=== PATIENT | female | born 1995 | race Caucasian/White ===

== ENCOUNTER 2016-12-18 19:26 | Emergency (ER) | payer OTHER ==
[2016-12-18 19:37] VITALS: O2SAT 96
[2016-12-18] MEDS ORDERED: PROVENTIL 2.5 MG/3 ML NEB IH ONE ×2 (20:06→20:16)
[2016-12-18] MEDS ORDERED: Rocephin 1000 MG INJ IM ONE (20:07)
[2016-12-18] MEDS ORDERED: Zithromax 250 MG TABLET PO ONE (20:07)
[2016-12-18] MEDS ORDERED: Robitussin-Dm Syrup PO ONE (20:07)
[2016-12-18] MEDS ORDERED: Rocephin 1000 MG INJ ONE (20:12)
[2016-12-18] MEDS ORDERED: Zithromax 250 MG TABLET ONE (20:12)
--- NOTE | 2016-12-18 20:13 | ERPHSYRPT ---
- History of Present Illness Time Seen by Provider: 12/18/16 20:02 Source: patient Exam Limitations: no limitations Patient Subjective Stated Complaint: PT STATES SHE HAS HAD A COUGH AND UPPER RESPIRATORY SYMTPTOMS STATSE HAS ASTHMA HAS BEEN SOB BUT HER NEBS HAVE BEEN HELPING UP UNTIL TODAY STATES THAT SHE DOSEN'T HAVE INSURANCE RIGHT NOW SOS HE DOSEN'T HAVE AN INHALER. PT LAST TOOK ALBUTEROL NEB [place] AT 1845 Triage Nursing Assessment: PT ALERT WARM AND DRY RESP EASY NON LABORED NO WHEEZES NOTED ON AUSCULTATION HOARSE VOICE NOTED. Physician History: FOR THE PAST 2 DAYS PT HAS HAD A SORE THROAT, RUNNY NOSE, EARACHES, COUGH, WHEEZING AND MID CHEST PAIN WITH COUGHING ONLY; TODAY HOARSENESS. Allergies/Adverse Reactions: codeine Allergy (Verified 12/18/16 19:33) Hx Tetanus, Diphtheria Vaccination/Date Given: No Hx Influenza Vaccination/Date Given: No Hx Pneumococcal Vaccination/Date Given: No Immunizations Up to Date: Yes - Review of Systems Constitutional: No Fever Ears, Nose, & Throat: Ear Pain, Nose Discharge, Throat Pain, Hoarse Respiratory: Cough, Wheezing Cardiac: Chest Pain Abdominal/Gastrointestinal: No Abdominal Pain, No Nausea, No Vomiting All Other Systems: Reviewed and Negative - Past Medical History Pertinent Past Medical History: Yes Other Medical History: ASTHMA - Past Surgical History Past Surgical History: Yes Other Surgical History: TONSILS,TUBES IN EARS,SPINAL TAP - Social History Smoking Status: Never smoker Exposure to second hand smoke: No Drug Use: none Patient Lives Alone: No - Female History Hx Last Menstrual Period: 3 WEEKS AGO - Nursing Vital Signs Nursing Vital Signs: Initial Vital Signs Temperature 99.0 F Temperature Source Oral Pulse Rate 94 Respiratory Rate 20 Blood Pressure [Right Arm] 132/91 - Physical Exam General Appearance: alert Eye Exam: PERRL/EOMI Ears, Nose, Throat Exam: moist mucous membranes, pharyngeal erythema, other (TM' S ERYTHEMATOUS) Neck Exam: normal inspection Respiratory Exam: wheezing (MINIMAL EXPIRATORY WHEEZING OVER RIGHT ANTERIOR FIELD) Cardiovascular Exam: normal heart sounds Gastrointestinal/Abdomen Exam: soft, normal bowel sounds Back Exam: normal range of motion Extremity Exam: normal inspection, No pedal edema Neurologic Exam: alert, cooperative Skin Exam: warm, dry SpO2 Interpretation: normal SpO2: 96 Oxygen Delivery: Room Air - Course Nursing assessment & vital signs reviewed: Yes Ordered Tests: Active Orders 24 hr Category Date Time Status Respiratory Nebulizer STAT RT 12/18/16 20:07 Active - Departure Time of Disposition: 20:16 Departure Disposition: Home Clinical Impression: BOM, PHARYNGITIS, ASTHMATIC BRONCHITIS Condition: Fair Critical Care Time: No Instructions: Bronchitis Additional Instructions: FOLLOW UP WITH PRIVATE DOCTOR TOMORROW. USE NEBULIZER AT HOME EVERY 4 HOURS NEEDED FOR WHEEZING. Prescriptions: Naproxen [Naprosyn] 500 mg PO Q12H PRN PRN #20 tablet PRN Reason: Pain Azithromycin 250 mg [Zithromax 250 MG TABLET] 250 mg PO ZPACK #6 tablet Benzonatate [Tessalon Perle] 100 mg PO TID #20 capsule
[2016-12-18] MEDS ORDERED: Ventolin Hfa MDI IH PRN (20:36)
[2016-12-18] MEDS ORDERED: Ventolin Hfa MDI IH ONE (20:36)
[2016-12-18 20:49] VITALS: BP 114/60; PULSE 100
== END 2016-12-18 20:49 | disposition home or self-care (01) ==
LOC: ED 19:26
DX: H66.93 Otitis media, unspecified, bilateral (principal); J02.9 Acute pharyngitis, unspecified; J45.909 Unspecified asthma, uncomplicated; R05 Cough; R06.2 Wheezing; R07.89 Other chest pain
CPT/HCPCS: 94640; 99282; J0696